=== PATIENT | female | born 1965 | race Caucasian/White ===

== ENCOUNTER 2020-08-18 11:34 | Inpatient (IN) | payer MEDICARE ==
[~2020-08-18] VITALS: Ht 167.6 cm; Wt 81.6 kg
[2020-08-18 12:10] VITALS: BP 124/85
[2020-08-18] MEDS ORDERED: CLON-364 PO (13:20)
[2020-08-18] MEDS ORDERED: ZONI50CA10 PO (13:20)
[2020-08-18] MEDS ORDERED: CELE200C PO (13:20)
[2020-08-18] MEDS ORDERED: OXYC1TAB14 PO (13:20)
[2020-08-18] MEDS ORDERED: DIAZ5TAB PO (13:20)
[2020-08-18] MEDS ORDERED: PRAM0.12 PO (13:20)
[2020-08-18] MEDS ORDERED: GABA800T5 PO (13:20)
[2020-08-18] MEDS ORDERED: METH-640 PO (13:20)
[2020-08-18] MEDS ORDERED: DULO60CA7 PO (13:20)
[2020-08-18] MEDS ORDERED: TRAZ50TA66 PO (13:20)
[2020-08-18 14:40] LABS: BASOPHILS % (AUTO) 1 % (0-1); EOSINOPHILS % (AUTO) 7 % (1-7); LYMPHOCYTES % (AUTO) 35 % (22-44); MEAN CORPUSCULAR HEMOGLOBIN 32.6 pg (27.0-34.8); MEAN CORPUSCULAR HGB CONC 33.5 g/dL (32.4-35.8); MEAN PLATELET VOLUME 6.5 fL (7.4-10.4); MONOCYTES % (AUTO) 8 % (2-9); NEUTROPHILS % (AUTO) 48 % (42-75); PLATELET COUNT 425 x10^3/uL (130-400); RED CELL DISTRIBUTION WIDTH 13.4 % (9.6-15.2)
[2020-08-18 14:52] LABS: ALANINE AMINOTRANSFERASE 24 U/L (12-78); ALBUMIN 3.2 g/dL (3.4-5.0); ANION GAP 7 mmol/L (5-15); CALCIUM 9.3 mg/dL (8.5-10.1); CHLORIDE 108 mmol/L (98-107); CREATININE 0.75 mg/dL (0.55-1.02)
[2020-08-18 14:53] VITALS: BP 130/84
[2020-08-18 14:59] LABS: ALKALINE PHOSPHATASE 136 U/L (45-117); BILIRUBIN,TOTAL 0.4 mg/dL (0.2-1.0); TOTAL PROTEIN 7.6 g/dL (6.4-8.2)
[2020-08-18] MEDS ORDERED: PRAMIPEXOLE 0.25MG TABLET ONE ×2 (15:24→20:28)
[2020-08-18] MEDS: GABAPENTIN 400 MG CAPSULE PO SCH ×2 (15:28→20:38)
[2020-08-18] MEDS: PRAMIPEXOLE 0.125MG TABLET PO SCH ×2 (15:29→20:40)
[2020-08-18] MEDS: OXYcodone/APAP 5/325MG TABLET PO SCH ×2 (15:29→20:39)
[2020-08-18] MEDS: METHOCARBAMOL 750 MG TABLET PO SCH ×2 (15:29→20:38)
[2020-08-18] MEDS ORDERED: TEMAZEPAM 15 MG CAPSULE PO PRN (15:30)
[2020-08-18] MEDS ORDERED: POLYETHYLENE GLYCOL 17 GM PACKET PO PRN (15:30)
[2020-08-18] MEDS ORDERED: ONDANSETRON 2MG/ML, 2ML IVPush PRN (15:30)
[2020-08-18 15:53] LABS: INTERNATIONAL NORMALIZED RATIO 1.02 (0.93-1.1); PROTHROMBIN TIME 10.9 Seconds (9.6-11.5)
[2020-08-18] MEDS ORDERED: VANCOMYCIN PER PHARMACY MC PRN (16:00)
[2020-08-18] MEDS ORDERED: PHARMACOKINETIC MONITORING MC PRN (16:00)
[2020-08-18] MEDS ORDERED: VANCOMYCIN 1,900 MG in SODIUM CHLORIDE 0.9% 250 ML IV ONE (16:00)
[2020-08-18] MEDS: PIPERACILLIN/TAZO 4.5 GM in DEXTROSE 5% 100 ML IVPB SCH ×2 (16:56→22:43)
[2020-08-18 17:02] LABS: HCT (SEDRATE) 37.9 % (34.6-47.8)
[2020-08-18 18:57] VITALS: BP 107/70
[2020-08-18] MEDS: ZONISAMIDE 50 MG CAPSULE PO SCH (20:38)
[2020-08-18] MEDS: DIAZEPAM 5 MG TABLET PO SCH (20:39)
[2020-08-18] MEDS: TRAZODONE 50MG TABLET PO SCH (20:39)
[2020-08-19 00:27] VITALS: BP 94/65
[2020-08-19] MEDS ORDERED: SODIUM CHLORIDE 0.9%, 500ML IVBOLUS ONE (01:00)
[2020-08-19 02:58] LABS: BASOPHILS % (AUTO) 1 % (0-1); EOSINOPHILS % (AUTO) 10 % (1-7); LYMPHOCYTES % (AUTO) 28 % (22-44); MEAN CORPUSCULAR HGB CONC 33.8 g/dL (32.4-35.8); MEAN PLATELET VOLUME 6.3 fL (7.4-10.4); MONOCYTES % (AUTO) 8 % (2-9); NEUTROPHILS % (AUTO) 54 % (42-75); PLATELET COUNT 326 x10^3/uL (130-400); RED BLOOD COUNT 3.46 x10^6/uL (3.82-5.3); RED CELL DISTRIBUTION WIDTH 13.3 % (9.6-15.2)
[2020-08-19 03:03] LABS: ANION GAP 7 mmol/L (5-15); CALCIUM 8.5 mg/dL (8.5-10.1); CHLORIDE 108 mmol/L (98-107); CREATININE 0.84 mg/dL (0.55-1.02)
[2020-08-19] MEDS: PIPERACILLIN/TAZO 4.5 GM in DEXTROSE 5% 100 ML IVPB SCH ×4 (04:35→23:30)
[2020-08-19] MEDS: VANCOMYCIN 1,500 MG in SODIUM CHLORIDE 0.9% 250 ML IV SCH ×2 (05:19→21:07)
[2020-08-19 06:21] VITALS: BP 100/67
[2020-08-19] MEDS: METHOCARBAMOL 750 MG TABLET PO SCH ×4 (06:28→21:06)
[2020-08-19] MEDS: GABAPENTIN 400 MG CAPSULE PO SCH ×4 (06:28→21:06)
[2020-08-19] MEDS: OXYcodone/APAP 5/325MG TABLET PO SCH ×2 (06:29→10:57)
[2020-08-19] MEDS: DULOXETINE 30 MG CAPSULE.DR PO SCH (08:39)
[2020-08-19] MEDS: PRAMIPEXOLE 0.125MG TABLET PO SCH ×3 (08:40→21:06)
[2020-08-19] MEDS: SENNA/DOCUSATE TABLET PO SCH (08:41)
[2020-08-19] MEDS: DIAZEPAM 5 MG TABLET PO SCH ×2 (08:41→21:06)
[2020-08-19] MEDS: NICOTINE 21 MG/24 HR PATCH.TD24 TD SCH (08:41)
[2020-08-19] MEDS ORDERED: MIDAZOLAM 1 MG/ML, 2ML ONE (12:04)
[2020-08-19] MEDS ORDERED: FENTANYL PF 250 MCG/5ML ONE ×2 (12:04→17:10)
[2020-08-19] MEDS ORDERED: ROCURONIUM 10MG/ML,5ML ONE (12:05)
[2020-08-19] MEDS ORDERED: PROPOFOL 10 MG/ML, 20ML ONE (12:07)
[2020-08-19] MEDS ORDERED: ONDANSETRON 2MG/ML, 2ML ONE (12:07)
[2020-08-19] MEDS ORDERED: LIDOCAINE-MPF 2% ,5ML ONE (12:07)
[2020-08-19] MEDS ORDERED: CHLORHEXIDINE 15 ML UDC ONE (12:43)
[2020-08-19] MEDS ORDERED: DIPHENHYDRAMINE 50 MG/ML, 1ML IVPush PRN (13:00)
[2020-08-19] MEDS ORDERED: LABETALOL 5MG/ML, 20ML IV PRN (13:00)
[2020-08-19] MEDS ORDERED: ONDANSETRON 2MG/ML, 2ML IVPush PRN (13:00)
[2020-08-19] MEDS ORDERED: ACETAMINOPHEN 325 MG TABLET PO PRN (13:00)
[2020-08-19] MEDS ORDERED: MEPERIDINE/PF 25MG/0.5ML IVPush PRN (13:00)
[2020-08-19] MEDS ORDERED: hydrALAzine 20 MG/ML, 1ML IV PRN (13:00)
[2020-08-19] MEDS ORDERED: DIAZEPAM 5 MG/ML, 2ML IVPush PRN (13:00)
[2020-08-19] MEDS ORDERED: OXYcodone 5 MG/5 ML ORAL.SOL UDC PO PRN (13:00)
[2020-08-19] MEDS ORDERED: BACITRACIN 50,000 UNIT ONE (13:18)
[2020-08-19] MEDS ORDERED: BACITRACIN OINT 500U/GM, 15 GM ONE (13:18)
[2020-08-19] MEDS ORDERED: DIAZEPAM 5 MG TABLET PO PRN (14:30)
[2020-08-19] MEDS ORDERED: HYDROmorphone 1 MG/ML, 1ML INJ IV PRN (14:30)
[2020-08-19] MEDS ORDERED: DEXAMETHASONE 4 MG/ML, 1ML ONE (17:10)
[2020-08-19] MEDS ORDERED: NEOSTIGMINE 1 MG/ML, 10ML ONE (17:10)
[2020-08-19] MEDS ORDERED: GLYCOPYRROLATE 0.2MG/1ML, 5ML ONE (17:10)
[2020-08-19] MEDS ORDERED: VANCOMYCIN 1,000 MG ONE (17:12)
[2020-08-19] MEDS ORDERED: HYDROmorphone 1 MG/ML, 1ML INJ ONE (18:09)
[2020-08-19] MEDS ORDERED: FENTANYL PF 100 MCG/2ML ONE (18:49)
[2020-08-19] MEDS ORDERED: HYDROmorphone 2 MG/ML, 1ML ONE (18:49)
[2020-08-19] MEDS ORDERED: OXYcodone 5 MG/5 ML ORAL.SOL UDC ONE (18:49)
[2020-08-19] MEDS: FENTANYL PF 100 MCG/2ML IV PRN ×2 (18:50→18:55)
[2020-08-19] MEDS: HYDROmorphone 1 MG/ML, 1ML INJ IVPush PRN ×3 (19:00→19:20)
[2020-08-19 20:50] VITALS: BP 92/63
[2020-08-19] MEDS: ZONISAMIDE 50 MG CAPSULE PO SCH (21:00)
[2020-08-19] MEDS: TRAZODONE 50MG TABLET PO SCH (21:07)
[2020-08-19] MEDS: OXYcodone IR 5MG TABLET PO PRN (23:37)
[2020-08-19] MEDS: ACETAMINOPHEN 325 MG TABLET PO PRN (23:37)
[2020-08-20 00:30] VITALS: BP 98/65
[2020-08-20 04:24] VITALS: BP 92/62
[2020-08-20] MEDS: ACETAMINOPHEN 325 MG TABLET PO PRN (04:26)
[2020-08-20] MEDS: OXYcodone IR 5MG TABLET PO PRN ×4 (04:26→22:19)
[2020-08-20] MEDS: PIPERACILLIN/TAZO 4.5 GM in DEXTROSE 5% 100 ML IVPB SCH ×4 (05:54→23:00)
[2020-08-20] MEDS: GABAPENTIN 400 MG CAPSULE PO SCH ×4 (05:54→22:19)
[2020-08-20] MEDS: METHOCARBAMOL 750 MG TABLET PO SCH ×4 (05:54→22:20)
[2020-08-20 06:53] VITALS: BP 118/67
[2020-08-20] MEDS: VANCOMYCIN 1,500 MG in SODIUM CHLORIDE 0.9% 250 ML IV SCH (08:41)
[2020-08-20] MEDS: DIAZEPAM 5 MG TABLET PO SCH ×2 (08:41→22:19)
[2020-08-20] MEDS: SENNA/DOCUSATE TABLET PO SCH (08:42)
[2020-08-20] MEDS: DULOXETINE 30 MG CAPSULE.DR PO SCH (08:45)
[2020-08-20] MEDS: NICOTINE 21 MG/24 HR PATCH.TD24 TD SCH (08:45)
[2020-08-20] MEDS: PRAMIPEXOLE 0.125MG TABLET PO SCH ×3 (08:49→22:30)
[2020-08-20 13:03] VITALS: BP 116/66
[2020-08-20] MEDS: DAPTOMYCIN 500 MG in SODIUM CHLORIDE 0.9% 100 ML IVPB SCH (17:49)
[2020-08-20 19:43] VITALS: BP 101/64
[2020-08-20] MEDS: TRAZODONE 50MG TABLET PO SCH (22:19)
[2020-08-20] MEDS: ZONISAMIDE 50 MG CAPSULE PO SCH (22:19)
[2020-08-21 02:38] VITALS: BP 98/65
[2020-08-21] MEDS: PIPERACILLIN/TAZO 4.5 GM in DEXTROSE 5% 100 ML IVPB SCH ×4 (04:59→22:36)
[2020-08-21] MEDS: METHOCARBAMOL 750 MG TABLET PO SCH ×4 (05:54→22:13)
[2020-08-21] MEDS: GABAPENTIN 400 MG CAPSULE PO SCH ×4 (05:54→22:13)
[2020-08-21] MEDS: OXYcodone IR 5MG TABLET PO PRN ×2 (06:04→11:00)
[2020-08-21 07:51] VITALS: BP 103/72
[2020-08-21] MEDS: DULOXETINE 30 MG CAPSULE.DR PO SCH (08:16)
[2020-08-21] MEDS: PRAMIPEXOLE 0.125MG TABLET PO SCH ×3 (08:16→22:13)
[2020-08-21] MEDS: DIAZEPAM 5 MG TABLET PO SCH ×2 (08:16→22:13)
[2020-08-21] MEDS: SENNA/DOCUSATE TABLET PO SCH (08:16)
[2020-08-21] MEDS: NICOTINE 21 MG/24 HR PATCH.TD24 TD SCH (08:17)
[2020-08-21] MEDS ORDERED: SENNA/DOCUSATE TABLET PO PRN (10:30)
[2020-08-21] MEDS ORDERED: FLUCONAZOLE 100 MG TABLET PO ONE (11:00)
[2020-08-21] MEDS: CLOTRIMAZOLE TROCHES 10 MG PO SCH ×4 (11:17→22:13)
[2020-08-21 13:33] VITALS: BP 94/67
[2020-08-21 15:46] VITALS: BP 106/60
[2020-08-21] MEDS: DAPTOMYCIN 500 MG in SODIUM CHLORIDE 0.9% 100 ML IVPB SCH (17:40)
[2020-08-21 19:44] VITALS: BP 104/50
[2020-08-21] MEDS: TRAZODONE 50MG TABLET PO SCH (22:13)
[2020-08-21] MEDS: ZONISAMIDE 50 MG CAPSULE PO SCH (22:13)
[2020-08-22 02:30] VITALS: BP 111/70
[2020-08-22] MEDS: OXYcodone IR 5MG TABLET PO PRN ×2 (02:51→06:47)
[2020-08-22] MEDS: PIPERACILLIN/TAZO 4.5 GM in DEXTROSE 5% 100 ML IVPB SCH (05:09)
[2020-08-22] MEDS: GABAPENTIN 400 MG CAPSULE PO SCH ×4 (05:09→19:34)
[2020-08-22] MEDS: CLOTRIMAZOLE TROCHES 10 MG PO SCH ×5 (05:10→22:14)
[2020-08-22] MEDS: METHOCARBAMOL 750 MG TABLET PO SCH ×4 (05:10→19:34)
[2020-08-22 05:42] LABS: HCT (SEDRATE) 32.4 % (34.6-47.8)
[2020-08-22 05:43] LABS: BASOPHILS % (AUTO) 1 % (0-1); EOSINOPHILS % (AUTO) 12 % (1-7); LYMPHOCYTES % (AUTO) 20 % (22-44); MEAN CORPUSCULAR HEMOGLOBIN 33.3 pg (27.0-34.8); MEAN CORPUSCULAR HGB CONC 33.3 g/dL (32.4-35.8); MONOCYTES % (AUTO) 14 % (2-9); NEUTROPHILS % (AUTO) 53 % (42-75); PLATELET COUNT 324 x10^3/uL (130-400); RED BLOOD COUNT 3.26 x10^6/uL (3.82-5.3); RED CELL DISTRIBUTION WIDTH 13.4 % (9.6-15.2)
[2020-08-22 05:50] LABS: ALBUMIN 2.3 g/dL (3.4-5.0); ANION GAP 7 mmol/L (5-15); CALCIUM 8.6 mg/dL (8.5-10.1); CHLORIDE 111 mmol/L (98-107)
[2020-08-22 06:01] LABS: ALANINE AMINOTRANSFERASE 120 U/L (12-78); ALKALINE PHOSPHATASE 167 U/L (45-117); BILIRUBIN,TOTAL 0.6 mg/dL (0.2-1.0); CREATINE KINASE, TOTAL 22 U/L (26-192); CREATININE 2.93 mg/dL (0.55-1.02); TOTAL PROTEIN 6.2 g/dL (6.4-8.2)
[2020-08-22 07:34] VITALS: BP 108/75
[2020-08-22 07:40] VITALS: BP 120/67
[2020-08-22] MEDS: NICOTINE 21 MG/24 HR PATCH.TD24 TD SCH (09:00)
[2020-08-22] MEDS: DIAZEPAM 5 MG TABLET PO SCH ×2 (09:16→22:14)
[2020-08-22] MEDS: DULOXETINE 30 MG CAPSULE.DR PO SCH (09:16)
[2020-08-22] MEDS: PRAMIPEXOLE 0.125MG TABLET PO SCH ×3 (09:16→22:14)
[2020-08-22] MEDS: AZTREONAM 1 GM in SODIUM CHLORIDE 0.9% 50 ML IV SCH ×2 (09:51→17:54)
[2020-08-22 13:33] VITALS: BP 98/69
[2020-08-22] MEDS: PHENOL THROAT SPRAY BOTTLE MM PRN ×2 (18:05→22:14)
[2020-08-22 18:50] VITALS: BP 119/78
[2020-08-22] MEDS: TRAZODONE 50MG TABLET PO SCH (22:14)
[2020-08-22] MEDS: ZONISAMIDE 50 MG CAPSULE PO SCH (22:14)
[2020-08-23 00:34] VITALS: BP 116/76
[2020-08-23] MEDS: AZTREONAM 1 GM in SODIUM CHLORIDE 0.9% 50 ML IV SCH ×3 (01:42→17:05)
[2020-08-23] MEDS: METHOCARBAMOL 750 MG TABLET PO SCH ×2 (05:24→09:23)
[2020-08-23] MEDS: CLOTRIMAZOLE TROCHES 10 MG PO SCH ×5 (05:24→22:18)
[2020-08-23] MEDS: GABAPENTIN 400 MG CAPSULE PO SCH ×4 (05:24→20:32)
[2020-08-23 07:41] VITALS: BP 125/85
[2020-08-23] MEDS: NICOTINE 21 MG/24 HR PATCH.TD24 TD SCH (09:00)
[2020-08-23] MEDS: PRAMIPEXOLE 0.125MG TABLET PO SCH ×3 (09:23→22:18)
[2020-08-23] MEDS: DULOXETINE 30 MG CAPSULE.DR PO SCH (09:24)
[2020-08-23] MEDS: OXYcodone IR 5MG TABLET PO PRN (09:35)
[2020-08-23 10:09] LABS: ALBUMIN 2.4 g/dL (3.4-5.0); ANION GAP 6 mmol/L (5-15); CALCIUM 8.8 mg/dL (8.5-10.1); CHLORIDE 111 mmol/L (98-107)
[2020-08-23 10:14] LABS: ALANINE AMINOTRANSFERASE 90 U/L (12-78); ALKALINE PHOSPHATASE 170 U/L (45-117); BILIRUBIN,TOTAL 0.5 mg/dL (0.2-1.0); CREATININE 2.51 mg/dL (0.55-1.02); TOTAL PROTEIN 6.5 g/dL (6.4-8.2)
[2020-08-23 13:48] VITALS: BP 116/79
[2020-08-23] MEDS ORDERED: DIAZEPAM 5 MG TABLET PO PRN (14:30)
[2020-08-23] MEDS: DAPTOMYCIN 500 MG in SODIUM CHLORIDE 0.9% 100 ML IVPB SCH (16:16)
[2020-08-23] MEDS ORDERED: NALOXONE 0.4 MG/ML, 1ML IVPush ONE (17:00)
[2020-08-23 19:37] LABS: CLOSTRIDIUM DIFFICILE ANTIGEN NEGATIVE; CLOSTRIDIUM DIFFICILE TOXIN NEGATIVE (Negative)
[2020-08-23 20:14] VITALS: BP 127/83
[2020-08-23] MEDS: METHOCARBAMOL 750 MG TABLET PO PRN (20:32)
[2020-08-23] MEDS: ZONISAMIDE 50 MG CAPSULE PO SCH (22:18)
[2020-08-23] MEDS: TRAZODONE 50MG TABLET PO SCH (22:19)
[2020-08-23] MEDS: PHENOL THROAT SPRAY BOTTLE MM PRN (22:20)
[2020-08-24] MEDS: AZTREONAM 1 GM in SODIUM CHLORIDE 0.9% 50 ML IV SCH (02:15)
[2020-08-24] MEDS: OXYcodone IR 5MG TABLET PO PRN ×4 (02:28→23:06)
[2020-08-24 02:33] VITALS: BP 114/75
[2020-08-24 06:03] LABS: BASOPHILS % (AUTO) 1 % (0-1); EOSINOPHILS % (AUTO) 15 % (1-7); LYMPHOCYTES % (AUTO) 30 % (22-44); MEAN CORPUSCULAR HEMOGLOBIN 33.7 pg (27.0-34.8); MEAN CORPUSCULAR HGB CONC 34.2 g/dL (32.4-35.8); MEAN PLATELET VOLUME 6.9 fL (7.4-10.4); MONOCYTES % (AUTO) 13 % (2-9); NEUTROPHILS % (AUTO) 41 % (42-75); PLATELET COUNT 358 x10^3/uL (130-400); RED BLOOD COUNT 3.17 x10^6/uL (3.82-5.3); RED CELL DISTRIBUTION WIDTH 13.7 % (9.6-15.2)
[2020-08-24 06:09] LABS: ALBUMIN 2.3 g/dL (3.4-5.0); ANION GAP 4 mmol/L (5-15); CALCIUM 9.1 mg/dL (8.5-10.1); CHLORIDE 113 mmol/L (98-107)
[2020-08-24 06:12] LABS: ALANINE AMINOTRANSFERASE 64 U/L (12-78); ALKALINE PHOSPHATASE 160 U/L (45-117); BILIRUBIN,TOTAL 0.5 mg/dL (0.2-1.0); CREATININE 2.24 mg/dL (0.55-1.02); TOTAL PROTEIN 6.3 g/dL (6.4-8.2)
[2020-08-24] MEDS: METHOCARBAMOL 750 MG TABLET PO PRN ×2 (06:22→18:33)
[2020-08-24] MEDS: GABAPENTIN 400 MG CAPSULE PO SCH ×4 (06:22→23:05)
[2020-08-24] MEDS: PHENOL THROAT SPRAY BOTTLE MM PRN ×3 (06:23→23:05)
[2020-08-24] MEDS: CLOTRIMAZOLE TROCHES 10 MG PO SCH ×5 (06:23→23:05)
[2020-08-24 07:39] VITALS: BP 120/71
[2020-08-24] MEDS: DULOXETINE 30 MG CAPSULE.DR PO SCH (10:05)
[2020-08-24] MEDS: PRAMIPEXOLE 0.125MG TABLET PO SCH ×3 (10:05→23:04)
[2020-08-24] MEDS: ERTAPENEM 0.5 GM in SODIUM CHLORIDE 0.9% 50 ML IV SCH (10:06)
[2020-08-24] MEDS: NICOTINE 21 MG/24 HR PATCH.TD24 TD SCH (10:06)
[2020-08-24 13:22] VITALS: BP 96/62
[2020-08-24 19:22] VITALS: BP 100/68
[2020-08-24] MEDS: TRAZODONE 50MG TABLET PO SCH (23:04)
[2020-08-24] MEDS: ZONISAMIDE 50 MG CAPSULE PO SCH (23:05)
[2020-08-25 01:42] VITALS: BP 106/63
[2020-08-25] MEDS: CLOTRIMAZOLE TROCHES 10 MG PO SCH ×5 (06:44→20:35)
[2020-08-25] MEDS: GABAPENTIN 400 MG CAPSULE PO SCH ×4 (06:45→20:35)
[2020-08-25] MEDS: OXYcodone IR 5MG TABLET PO PRN ×3 (06:45→18:31)
[2020-08-25 07:22] LABS: ANION GAP 4 mmol/L (5-15); CALCIUM 9.1 mg/dL (8.5-10.1); CHLORIDE 112 mmol/L (98-107)
[2020-08-25 07:57] VITALS: BP 134/88
[2020-08-25] MEDS: PRAMIPEXOLE 0.125MG TABLET PO SCH ×3 (09:00→20:35)
[2020-08-25] MEDS: NICOTINE 21 MG/24 HR PATCH.TD24 TD SCH (09:00)
[2020-08-25] MEDS: DULOXETINE 30 MG CAPSULE.DR PO SCH (09:00)
[2020-08-25] MEDS: ERTAPENEM 0.5 GM in SODIUM CHLORIDE 0.9% 50 ML IV SCH (09:24)
[2020-08-25 13:51] VITALS: BP 108/75
[2020-08-25] MEDS: DAPTOMYCIN 500 MG in SODIUM CHLORIDE 0.9% 100 ML IVPB SCH (16:08)
[2020-08-25] MEDS: ACETAMINOPHEN 325 MG TABLET PO PRN (18:30)
[2020-08-25] MEDS: TRAZODONE 50MG TABLET PO SCH (20:35)
[2020-08-25] MEDS: ZONISAMIDE 50 MG CAPSULE PO SCH (20:35)
[2020-08-25 20:38] VITALS: BP 116/81
[2020-08-25] MEDS: METHOCARBAMOL 750 MG TABLET PO PRN (20:44)
[2020-08-26] MEDS: OXYcodone IR 5MG TABLET PO PRN ×6 (01:02→21:20)
[2020-08-26] MEDS: ACETAMINOPHEN 325 MG TABLET PO PRN (01:02)
[2020-08-26 02:56] VITALS: BP 99/66
[2020-08-26] MEDS: CLOTRIMAZOLE TROCHES 10 MG PO SCH ×5 (05:22→20:52)
[2020-08-26] MEDS: GABAPENTIN 400 MG CAPSULE PO SCH ×4 (05:22→20:51)
[2020-08-26] MEDS: METHOCARBAMOL 750 MG TABLET PO PRN ×3 (05:24→20:51)
[2020-08-26] MEDS: NICOTINE 21 MG/24 HR PATCH.TD24 TD SCH (07:33)
[2020-08-26 07:55] VITALS: BP 127/84
[2020-08-26] MEDS: ERTAPENEM 0.5 GM in SODIUM CHLORIDE 0.9% 50 ML IV SCH (08:26)
[2020-08-26] MEDS: DULOXETINE 30 MG CAPSULE.DR PO SCH (08:29)
[2020-08-26] MEDS: PRAMIPEXOLE 0.125MG TABLET PO SCH ×3 (08:29→20:51)
[2020-08-26] MEDS: PHENOL THROAT SPRAY BOTTLE MM PRN (08:29)
[2020-08-26 14:22] VITALS: BP 117/76
[2020-08-26] MEDS: ZONISAMIDE 50 MG CAPSULE PO SCH (20:51)
[2020-08-26] MEDS: TRAZODONE 50MG TABLET PO SCH (20:51)
[2020-08-26 20:53] VITALS: BP 115/78
[2020-08-27 02:29] VITALS: BP 118/79
[2020-08-27] MEDS: OXYcodone IR 5MG TABLET PO PRN ×5 (04:03→20:45)
[2020-08-27] MEDS: METHOCARBAMOL 750 MG TABLET PO PRN ×2 (04:03→18:19)
[2020-08-27] MEDS: GABAPENTIN 400 MG CAPSULE PO SCH ×4 (05:23→20:44)
[2020-08-27] MEDS: CLOTRIMAZOLE TROCHES 10 MG PO SCH ×5 (05:23→20:44)
[2020-08-27 06:13] LABS: CHLORIDE 108 mmol/L (98-107)
[2020-08-27 06:23] LABS: ANION GAP 7 mmol/L (5-15); CALCIUM 9.2 mg/dL (8.5-10.1)
[2020-08-27 07:35] VITALS: BP 144/85
[2020-08-27] MEDS: DULOXETINE 30 MG CAPSULE.DR PO SCH (08:55)
[2020-08-27] MEDS: NICOTINE 21 MG/24 HR PATCH.TD24 TD SCH (08:56)
[2020-08-27] MEDS: PRAMIPEXOLE 0.125MG TABLET PO SCH ×3 (08:56→20:45)
[2020-08-27] MEDS: ERTAPENEM 0.5 GM in SODIUM CHLORIDE 0.9% 50 ML IV SCH (09:56)
[2020-08-27] MEDS: DAPTOMYCIN 500 MG in SODIUM CHLORIDE 0.9% 100 ML IVPB SCH (11:36)
[2020-08-27 14:30] VITALS: BP 122/79
[2020-08-27 20:17] VITALS: BP 124/85
[2020-08-27] MEDS: TRAZODONE 50MG TABLET PO SCH (20:44)
[2020-08-27] MEDS: ZONISAMIDE 50 MG CAPSULE PO SCH (20:44)
[2020-08-27] MEDS: PHENOL THROAT SPRAY BOTTLE MM PRN (20:52)
[2020-08-28 02:10] VITALS: BP 115/77
[2020-08-28] MEDS: METHOCARBAMOL 750 MG TABLET PO PRN (05:07)
[2020-08-28] MEDS: OXYcodone IR 5MG TABLET PO PRN ×4 (05:07→22:36)
[2020-08-28] MEDS: GABAPENTIN 400 MG CAPSULE PO SCH ×4 (05:07→22:34)
[2020-08-28] MEDS: CLOTRIMAZOLE TROCHES 10 MG PO SCH ×5 (05:07→22:36)
[2020-08-28] MEDS: PHENOL THROAT SPRAY BOTTLE MM PRN ×2 (05:08→22:37)
[2020-08-28 05:44] LABS: ANION GAP 5 mmol/L (5-15); CALCIUM 9.4 mg/dL (8.5-10.1); CHLORIDE 108 mmol/L (98-107); CREATININE 1.91 mg/dL (0.55-1.02)
[2020-08-28 07:51] VITALS: BP 119/78
[2020-08-28] MEDS: ERTAPENEM 1 GM in SODIUM CHLORIDE 0.9% 50 ML IV SCH (09:31)
[2020-08-28] MEDS: PRAMIPEXOLE 0.125MG TABLET PO SCH ×3 (09:32→22:34)
[2020-08-28] MEDS: DULOXETINE 30 MG CAPSULE.DR PO SCH (09:33)
[2020-08-28] MEDS: NICOTINE 21 MG/24 HR PATCH.TD24 TD SCH (09:34)
[2020-08-28] MEDS: DAPTOMYCIN 500 MG in SODIUM CHLORIDE 0.9% 100 ML IVPB SCH (12:14)
[2020-08-28 13:22] VITALS: BP 114/79
[2020-08-28 19:05] VITALS: BP 133/83
[2020-08-28] MEDS: ZONISAMIDE 50 MG CAPSULE PO SCH (22:36)
[2020-08-28] MEDS: TRAZODONE 50MG TABLET PO SCH (22:36)
[2020-08-29 00:38] VITALS: BP 128/78
[2020-08-29] MEDS: CLOTRIMAZOLE TROCHES 10 MG PO SCH ×5 (05:22→22:14)
[2020-08-29] MEDS: GABAPENTIN 400 MG CAPSULE PO SCH ×4 (05:23→22:14)
[2020-08-29 05:33] LABS: BASOPHILS % (AUTO) 1 % (0-1); EOSINOPHILS % (AUTO) 11 % (1-7); LYMPHOCYTES % (AUTO) 29 % (22-44); MEAN CORPUSCULAR HEMOGLOBIN 33.1 pg (27.0-34.8); MEAN CORPUSCULAR HGB CONC 33.9 g/dL (32.4-35.8); MEAN PLATELET VOLUME 6.7 fL (7.4-10.4); MONOCYTES % (AUTO) 14 % (2-9); NEUTROPHILS % (AUTO) 45 % (42-75); PLATELET COUNT 405 x10^3/uL (130-400); RED BLOOD COUNT 3.12 x10^6/uL (3.82-5.3); RED CELL DISTRIBUTION WIDTH 13.6 % (9.6-15.2)
[2020-08-29 05:34] LABS: HCT (SEDRATE) 30.6 % (34.6-47.8)
[2020-08-29 05:44] LABS: ALBUMIN 2.6 g/dL (3.4-5.0); ANION GAP 5 mmol/L (5-15); CALCIUM 9.4 mg/dL (8.5-10.1); CHLORIDE 109 mmol/L (98-107)
[2020-08-29 05:54] LABS: ALANINE AMINOTRANSFERASE 42 U/L (12-78); ALKALINE PHOSPHATASE 155 U/L (45-117); BILIRUBIN,TOTAL 0.3 mg/dL (0.2-1.0); CREATINE KINASE, TOTAL 37 U/L (26-192); CREATININE 1.85 mg/dL (0.55-1.02); TOTAL PROTEIN 6.7 g/dL (6.4-8.2)
[2020-08-29 07:15] VITALS: BP 124/84
[2020-08-29] MEDS: PRAMIPEXOLE 0.125MG TABLET PO SCH ×3 (09:14→22:14)
[2020-08-29] MEDS: DULOXETINE 30 MG CAPSULE.DR PO SCH (09:14)
[2020-08-29] MEDS: NICOTINE 21 MG/24 HR PATCH.TD24 TD SCH (09:15)
[2020-08-29] MEDS: ERTAPENEM 1 GM in SODIUM CHLORIDE 0.9% 50 ML IV SCH (09:26)
[2020-08-29] MEDS: OXYcodone IR 5MG TABLET PO PRN ×4 (09:32→22:17)
[2020-08-29] MEDS: DAPTOMYCIN 500 MG in SODIUM CHLORIDE 0.9% 100 ML IVPB SCH (11:31)
[2020-08-29 13:59] VITALS: BP 134/85
[2020-08-29] MEDS: ACETAMINOPHEN 325 MG TABLET PO PRN (19:46)
[2020-08-29 20:12] VITALS: BP 107/73
[2020-08-29] MEDS: TRAZODONE 50MG TABLET PO SCH (22:14)
[2020-08-29] MEDS: ZONISAMIDE 50 MG CAPSULE PO SCH (22:14)
[2020-08-30 00:54] VITALS: BP 95/67
[2020-08-30] MEDS: GABAPENTIN 400 MG CAPSULE PO SCH ×4 (05:05→20:45)
[2020-08-30] MEDS: OXYcodone IR 5MG TABLET PO PRN ×4 (05:06→20:46)
[2020-08-30] MEDS: CLOTRIMAZOLE TROCHES 10 MG PO SCH ×5 (05:12→20:46)
[2020-08-30 07:08] VITALS: BP 122/81
[2020-08-30] MEDS: ERTAPENEM 1 GM in SODIUM CHLORIDE 0.9% 50 ML IV SCH (09:11)
[2020-08-30] MEDS: PRAMIPEXOLE 0.125MG TABLET PO SCH ×3 (09:11→20:46)
[2020-08-30] MEDS: DULOXETINE 30 MG CAPSULE.DR PO SCH (09:11)
[2020-08-30] MEDS: NICOTINE 21 MG/24 HR PATCH.TD24 TD SCH (09:12)
[2020-08-30] MEDS: DAPTOMYCIN 500 MG in SODIUM CHLORIDE 0.9% 100 ML IVPB SCH (11:39)
[2020-08-30 13:25] VITALS: BP 113/78
[2020-08-30] MEDS: LACTOBACILLUS 1GM/ PACKET PO SCH ×2 (16:12→20:45)
[2020-08-30 18:36] VITALS: BP 132/82
[2020-08-30] MEDS: ZONISAMIDE 50 MG CAPSULE PO SCH (20:46)
[2020-08-30] MEDS: TRAZODONE 50MG TABLET PO SCH (20:46)
[2020-08-31 01:31] VITALS: BP 116/76
[2020-08-31] MEDS: METHOCARBAMOL 750 MG TABLET PO PRN (04:43)
[2020-08-31] MEDS: OXYcodone IR 5MG TABLET PO PRN ×2 (04:43→09:05)
[2020-08-31] MEDS: CLOTRIMAZOLE TROCHES 10 MG PO SCH ×2 (05:49→09:05)
[2020-08-31] MEDS: GABAPENTIN 400 MG CAPSULE PO SCH ×2 (05:49→11:22)
[2020-08-31 07:30] VITALS: BP 129/78
[2020-08-31] MEDS: LACTOBACILLUS 1GM/ PACKET PO SCH (09:04)
[2020-08-31] MEDS: DULOXETINE 30 MG CAPSULE.DR PO SCH (09:05)
[2020-08-31] MEDS: ERTAPENEM 1 GM in SODIUM CHLORIDE 0.9% 50 ML IV SCH (09:05)
[2020-08-31] MEDS: PRAMIPEXOLE 0.125MG TABLET PO SCH (09:06)
[2020-08-31] MEDS: NICOTINE 21 MG/24 HR PATCH.TD24 TD SCH (09:06)
[2020-08-31] MEDS ORDERED: ERTA1VIA4 IV (10:48)
[2020-08-31] MEDS ORDERED: ACID1GRA3 PO (10:48)
[2020-08-31] MEDS ORDERED: DULO60CA7 PO (10:48)
[2020-08-31] MEDS ORDERED: PRAM0.125 PO (10:48)
[2020-08-31] MEDS ORDERED: ZONI50CA10 PO (10:48)
[2020-08-31] MEDS ORDERED: DAPT500V6 IV (10:48)
[2020-08-31] MEDS: DAPTOMYCIN 500 MG in SODIUM CHLORIDE 0.9% 100 ML IVPB SCH (11:22)
[2020-08-31 12:29] VITALS: BP 116/70
== END 2020-08-31 13:00 | disposition home health service (06) | DRG 857 ==
LOC: 4NE 11:34 → DCLOUNGE 08-31 12:48
PROVIDERS: ADMIT Neurological Surgery; ATTEND Family Medicine
PROC: 0JD70ZZ Extraction of Back Subcutaneous Tissue and Fascia, Open Approach (ICD-10-PCS; principal; 2020-08-19 13:00)
PROC: 02HV33Z Insertion of Infusion Device into Superior Vena Cava, Percutaneous Approach (ICD-10-PCS; 2020-08-24)
PROC: B5181ZA Fluoroscopy of Superior Vena Cava using Low Osmolar Contrast, Guidance (ICD-10-PCS; 2020-08-24)
PROC: B548ZZA Ultrasonography of Superior Vena Cava, Guidance (ICD-10-PCS; 2020-08-24)
DX: T81.41XA Infection following a procedure, superficial incisional surgical site, initial encounter (principal); N17.9 Acute kidney failure, unspecified; L02.11 Cutaneous abscess of neck; F17.200 Nicotine dependence, unspecified, uncomplicated; J45.909 Unspecified asthma, uncomplicated; L40.50 Arthropathic psoriasis, unspecified; M10.9 Gout, unspecified; M79.7 Fibromyalgia; N20.0 Calculus of kidney; K27.9 Peptic ulcer, site unspecified, unspecified as acute or chronic, without hemorrhage or perforation; Y84.8 Other medical procedures as the cause of abnormal reaction of the patient, or of later complication, without mention of misadventure at the time of the procedure; F17.210 Nicotine dependence, cigarettes, uncomplicated; Z98.1 Arthrodesis status; Z90.49 Acquired absence of other specified parts of digestive tract; Z87.442 Personal history of urinary calculi; Z87.01 Personal history of pneumonia (recurrent); Z80.3 Family history of malignant neoplasm of breast; Z87.11 Personal history of peptic ulcer disease; Z87.81 Personal history of (healed) traumatic fracture; Y92.89 Other specified places as the place of occurrence of the external cause; Z88.8 Allergy status to other drugs, medicaments and biological substances
CPT/HCPCS: 36415; 36573; 80048; 80053; 82550; 82784; 82787; 83036; 84443; 84550; 85025; 85610; 85651; 86140; 87015; 87040; 87070; 87075; 87077; 87102; 87116; 87186; 87205; 87206; 87324; 87635; 93005; C1713; G0378; J0878; J1100; J1170; J1335; J2250; J2310; J2405; J2543; J2704; J2710; J3010; J3370; C1751; J7040; J7050